=== PATIENT | female | born 1970 | race Caucasian/White ===

== ENCOUNTER 2019-07-24 10:12 | Emergency (ER) | payer SELFPAY ==
[~2019-07-24] VITALS: Ht 162.6 cm; Wt 90.0 kg
[~2019-07-24 10:12] MED LIST: IBUP800T48 PO
[2019-07-24 10:15] VITALS: Ht 162.6 cm; Wt 90.0 kg
[2019-07-24] MEDS ORDERED: SOD CHLORIDE 0.9% 1,000 ML IV STA (10:49)
[2019-07-24] MEDS ORDERED: morphine 4 MG/ML VIAL IV ONE (11:00)
[2019-07-24] MEDS ORDERED: IBUPROFEN 800 MG TAB PO ONE (11:00)
[2019-07-24] MEDS ORDERED: ONDANSETRON 4 MG INJ IV ONE (11:00)
[2019-07-24 12:44] VITALS: BP 148/74; PULSE 91; RESP 18
== END 2019-07-24 12:49 | disposition home or self-care (01) ==
LOC: FTE 10:12
DX: M54.2 Cervicalgia (principal); M54.5 Low back pain; R94.02 Abnormal brain scan
CPT/HCPCS: 70450; 72100; 72125; 96374; 96375; 99285; J2270; J2405; J7030